=== PATIENT | male | born 1995 | race Caucasian/White ===

== ENCOUNTER → 2017-12-15 | Outpatient (CLI) | payer OTHER ==
--- NOTE | 2017-12-15 13:46 | XR ---
EXAMINATION TYPE: XR knee complete LT DATE OF EXAM: 12/15/2017 CLINICAL HISTORY: Pain after injury. TECHNIQUE: Three views of the left knee are obtained. COMPARISON: None. FINDINGS: Patella joan is present with Insall-Salvati ratio of roughly 1.3. There is no acute fractu re/dislocation evident in left knee. The tri-compartment joint spaces appear within normal limits. The overlying soft tissue appears unremarkable. IMPRESSION: There is no acute fracture or dislocation in the left knee. Underlying patella joan note d.
--- NOTE | 2017-12-15 13:47 | XR ---
EXAMINATION TYPE: XR chest 2V DATE OF EXAM: 12/15/2017 COMPARISON: NONE HISTORY: Bronchitis per order. Shortness of breath on occasion per patient. TECHNIQUE: Frontal and lateral views of the chest are obtained. FINDINGS: There is no focal air space opacity, pleural effusion, or pneumothorax seen. The cardiac silhouette size is within normal limits. The osseous structures are intact. IMPRESSION: No acute cardiopulmonary process.
--- NOTE | 2017-12-15 13:47 | XR ---
EXAMINATION TYPE: XR shoulder complete RT DATE OF EXAM: 12/15/2017 CLINICAL HISTORY: Pain after injury. TECHNIQUE: Three views of the right shoulder are obtained. COMPARISON: None. FINDINGS: There is no acute fracture/dislocation evident in the right shoulder. The acromioclavicul ar and glenohumeral joint spaces appear within normal limits. Distal acromion morphology is unremarka ble. The visualized ribs are intact and unremarkable. IMPRESSION: There is no acute fracture or dislocation in the right shoulder.
--- NOTE | 2017-12-15 13:48 | XR ---
EXAMINATION TYPE: XR lumbar spine 2 or 3V DATE OF EXAM: 12/15/2017 CLINICAL HISTORY: Low back pain after injury. TECHNIQUE: Frontal and lateral images of the lumbar spine are obtained. COMPARISON: None FINDINGS: There are 5 lumbar type vertebral bodies identified. The lumbar spine shows satisfactory alignment without evidence of acute fracture or dislocation. Vertebral body heights and disk space he ights are within normal limits. The overlying soft tissue appears unremarkable. IMPRESSION: No acute fracture or dislocation is seen in the lumbar spine.
== END | disposition home or self-care (01) ==
LOC: RADXRMAIN 12:38
PROVIDERS: ATTEND Internal Medicine
DX: M22.8X2 Other disorders of patella, left knee (principal); M25.562 Pain in left knee; M54.9 Dorsalgia, unspecified; M25.511 Pain in right shoulder; J20.9 Acute bronchitis, unspecified
CPT/HCPCS: 71046; 72100